=== PATIENT | male | born 1950 | race Caucasian/White ===

== ENCOUNTER 2018-02-25 08:13 | Emergency (ER) | payer OTHER, MEDICARE ==
[~2018-02-25] VITALS: Ht 175.3 cm; Wt 79.7 kg
[2018-02-25 08:22] VITALS: TEMP 36.3; Ht 175.3 cm; Wt 79.7 kg
[2018-02-25] MEDS ORDERED: SODIUM CHLORIDE 0.9% 1000ML 1,000 ML IV STA (08:27)
[2018-02-25] MEDS ORDERED: ONDANSETRON INJ 2 MG/ML 2 ML VIAL IV STA (08:27)
[2018-02-25] MEDS ORDERED: LOPERAMIDE HCL 2 MG CAP PO STA (08:39)
[2018-02-25 08:43] LABS: BASO % 0.2 %; BASO ABS # 0.01 K/uL (0-0.2); EOS % 0.5 %; EOS ABS # 0.03 K/uL (0-0.5); HEMATOCRIT 49.4 % (42-52); HEMOGLOBIN 18.2 g/dL (14.0-18.0); IG# 0.02 K/uL (0.00-0.02); LYMPH % 27.3 %; LYMPH ABS # 1.79 K/uL (1.2-3.4); MEAN CELL VOLUME 86.4 fL (80-100); MEAN CORPUSCULAR HEMOGLOBIN 31.8 pg (25-34); MEAN CORPUSCULAR HGB CONC 36.8 g/dl (32-36); MEAN PLATELET VOLUME 9.7 fL (7.4-10.4); MONO % 21.3 %; NEUT % 50.4 %; NEUT ABS # 3.31 K/uL (1.4-6.5); PLATELET COUNT 277 K/uL (130-400); RED CELL DISTRIBUTION WIDTH CV 13.2 % (11.5-14.5); RED CELL DISTRIBUTION WIDTH SD 41.9 fL (36.4-46.3); WHITE BLOOD COUNT 6.56 K/uL (4.8-10.8)
[2018-02-25 08:59] LABS: ALBUMIN 3.9 gm/dl (3.4-5.0); CALCIUM 8.9 mg/dl (8.5-10.1); CREATININE 2.18 mg/dl (0.60-1.40); POTASSIUM 3.3 mmol/L (3.5-5.1)
[2018-02-25 09:02] LABS: TOTAL PROTEIN 8.6 gm/dl (6.4-8.2)
[2018-02-25] MEDS ORDERED: LOSA1TAB PO (09:02)
[2018-02-25] MEDS ORDERED: PRVC40 PO (09:02)
[2018-02-25] MEDS ORDERED: TAMS0.4C38 PO (09:02)
[2018-02-25] MEDS ORDERED: PANT40TA PO (09:02)
--- NOTE | 2018-02-25 09:42 | DIAGNOSTIC IMAGING REPORT ---
CHEST ONE VIEW PORTABLE HISTORY: Generalized abdominal pain. COMPARISON: None. FINDINGS: The lungs are clear. Cardiac silhouette is normal in size. No pleural effusions. No pneumothorax. IMPRESSION: No acute process. Electronically signed by: Dre Vazquez M.D. 02/25/2018 9:40 AM Dictated Date/Time: 02/25/2018 9:40 AM
[2018-02-25] MEDS ORDERED: ONDA4TAB10 SL (09:44)
--- NOTE | 2018-02-25 09:46 | EMERGENCY ROOM VISIT NOTE ---
History Report prepared by Rodrigo: Zay Dewitt Under the Supervision of: Dr. Nomi Ignacio D.O. First contact with patient: 08:26 Chief Complaint: DIARRHEA Stated Complaint: DIARRHEA,NAUSEA History of Present Illness The patient is a 67 year old male who presents to the Emergency Room with complaints of a persistent illness that started 3 days ago. He states that he was fishing 3 days ago, and ate a ham sandwich, but an hour and a half after eating, he started having bad vomiting. The patient says that he vomited twice that day, and ever since then, he has had diarrhea every 10 minutes "all night all day". He notes that he has been having diarrhea 4 to 5 times every hour overnight. The patient says that he has only been able to put down water and Gatorade, and he feels dehydrated. He says that he has not vomited since the initial day of his symptoms, but he has had persistent nausea. He adds that he has been having some abdominal cramping. The patient denies any blood in his stool. He notes no recent antibiotic use. He denies drinking out of any streams. Source of History: patient Onset: 3 days ago Position: other (global) Symptom Intensity: 4 to 5 diarrhea episodes per hour Quality: other (illness) Associated Symptoms: + nausea, + vomiting, + abdominal pain, + diarrhea, No hematochezia Review of Systems See HPI for pertinent positives & negatives. A total of 10 systems reviewed and were otherwise negative. Past Medical & Surgical Medical Problems: (1) Acid reflux (2) HLD (hyperlipidemia) (3) HTN (hypertension) (4) Prostate enlargement Family History No pertinent family history Social History Smoking Status: Current Every Day Smoker Alcohol Use: occasionally Drug Use: none Occupation Status: retired Current/Historical Medications Scheduled Losartan Potassium (Cozaar), 25 MG PO DAILY Ondasetron Odt (Zofran Odt), 4 MG SL Q6H Pantoprazole (Protonix), 40 MG PO DAILY Pravastatin Sod (Pravastatin Sodium), 40 MG PO DAILY Tamsulosin Hcl (Flomax), 0.4 MG PO DAILY Allergies Coded Allergies: No Known Allergies (Unverified , 02/25/18) Physical Exam Vital Signs Date Time Temp Pulse Resp B/P (MAP) Pulse Ox O2 Delivery O2 Flow Rate FiO2 02/25/18 09:20 67 16 147/79 97 Room Air 02/25/18 08:22 36.3 89 20 108/73 99 Room Air Physical Exam CONSTITUTIONAL/VITAL SIGNS: Reviewed / noted above. GENERAL: Non-toxic in appearance. INTEGUMENTARY: Warm, dry, and [place]. HEAD: Normocephalic. EYES: without scleral icterus or trauma. ENT/OROPHARYNX: clear and moist. LYMPHADENOPATHY/NECK: Is supple without lymphadenopathy or meningismus. RESPIRATORY: Lungs clear and equal. CARDIOVASCULAR: Regular rate and rhythm. GI/ABDOMEN: Soft and nontender. No organomegaly or pulsatile mass. No rebound or guarding. Normal bowel sounds. EXTREMITIES: Warm and well perfused. BACK: No CVA tenderness. NEUROLOGICAL: Intact without focal deficits. PSYCHIATRIC: normal affect. MUSCULOSKELETAL: Normally developed with good muscle tone. Medical Decision & Procedures ER Provider Diagnostic Interpretation: X ray results and stated below per my interpretation and radiology interpretation. CHEST ONE VIEW PORTABLE HISTORY: Generalized abdominal pain. COMPARISON: None. FINDINGS: The lungs are clear. Cardiac silhouette is normal in size. No pleural effusions. No pneumothorax. IMPRESSION: No acute process. Electronically signed by: Dre Vazquez M.D. 02/25/2018 9:40 AM Dictated Date/Time: 02/25/2018 9:40 AM Laboratory Results 02/25/18 08:30 Red Blood Count 5.72, Mean Corpuscular Volume 86.4, Mean Corpuscular Hemoglobin 31.8, Mean Corpuscular Hemoglobin Concent 36.8, Mean Platelet Volume 9.7, Neutrophils (%) (Auto) 50.4, Lymphocytes (%) (Auto) 27.3, Monocytes (%) (Auto) 21.3, Eosinophils (%) (Auto) 0.5, Basophils (%) (Auto) 0.2, Neutrophils # (Auto ) 3.31, Lymphocytes # (Auto) 1.79, Monocytes # (Auto) 1.40, Eosinophils # (Auto ) 0.03, Basophils # (Auto) 0.01 02/25/18 08:30 Test 02/25/18 08:30 02/25/18 09:21 White Blood Count 6.56 K/uL (4.8-10.8) Red Blood Count 5.72 M/uL (4.7-6.1) Hemoglobin 18.2 g/dL (14.0-18.0) Hematocrit 49.4 % (42-52) Mean Corpuscular Volume 86.4 fL (80-100) Mean Corpuscular Hemoglobin 31.8 pg (25-34) Mean Corpuscular Hemoglobin Concent 36.8 g/dl (32-36) Platelet Count 277 K/uL (130-400) Mean Platelet Volume 9.7 fL (7.4-10.4) Neutrophils (%) (Auto) 50.4 % Lymphocytes (%) (Auto) 27.3 % Monocytes (%) (Auto) 21.3 % Eosinophils (%) (Auto) 0.5 % Basophils (%) (Auto) 0.2 % Neutrophils # (Auto) 3.31 K/uL (1.4-6.5) Lymphocytes # (Auto) 1.79 K/uL (1.2-3.4) Monocytes # (Auto) 1.40 K/uL (0.11-0.59) Eosinophils # (Auto) 0.03 K/uL (0-0.5) Basophils # (Auto) 0.01 K/uL (0-0.2) RDW Standard Deviation 41.9 fL (36.4-46.3) RDW Coefficient of Variation 13.2 % (11.5-14.5) Immature Granulocyte % (Auto) 0.3 % Immature Granulocyte # (Auto) 0.02 K/uL (0.00-0.02) Anion Gap 13.0 mmol/L (3-11) Est Creatinine Clear Calc Drug Dose 32.4 ml/min Estimated GFR () 34.8 Estimated GFR (Non- 30.0 BUN/Creatinine Ratio 21.6 (10-20) Calcium Level 8.9 mg/dl (8.5-10.1) Total Bilirubin 0.4 mg/dl (0.2-1) Direct Bilirubin 0.1 mg/dl (0-0.2) Aspartate Amino Transf (AST/SGOT) 44 U/L (15-37) Alanine Aminotransferase (ALT/SGPT) 56 U/L (12-78) Alkaline Phosphatase 57 U/L (45-117) Total Protein 8.6 gm/dl (6.4-8.2) Albumin 3.9 gm/dl (3.4-5.0) Lipase 380 U/L (73-393) Urine Color DK YELLOW Urine Appearance CLOUDY (CLEAR) Urine pH 5.0 (4.5-7.5) Urine Specific Rea 1.023 (1.000-1.030) Urine Protein 1+ (NEG) Urine Glucose (UA) NEG (NEG) Urine Ketones TRACE (NEG) Urine Occult Blood NEG (NEG) Urine Nitrite NEG (NEG) Urine Bilirubin NEG (NEG) Urine Urobilinogen NEG (NEG) Urine Leukocyte Esterase NEG (NEG) Urine WBC (Auto) 1-5 /hpf (0-5) Urine RBC (Auto) 5-10 /hpf (0-4) Urine Hyaline Casts (Auto) >30 /lpf (0-5) Urine Epithelial Cells (Auto) >30 /lpf (0-5) Urine Bacteria (Auto) NEG (NEG) Urine Pathogenic Casts 1-5 GRANULAR CASTS /lpf (0) Laboratory results as stated above per my review. Medications Administered Medications (Trade) Dose Ordered Sig/[place] Route Start Time Stop Time Status Last Admin Dose Admin Sodium Chloride 1,000 ml @ 500 mls/hr Q2H STAT IV 02/25/18 08:27 02/25/18 10:26 02/25/18 08:49 500 MLS/HR Ondansetron HCl (Zofran Inj) 4 mg NOW STAT IV 02/25/18 08:27 02/25/18 08:30 DC 02/25/18 08:47 4 MG Loperamide HCl (Imodium Cap) 2 mg NOW STAT PO 02/25/18 08:39 02/25/18 08:40 DC 02/25/18 08:47 2 MG ED Course 0827: Zofran Inj 4 mg IV, NSS 1000 ml @ 500 mls/hr IV. 0835: Previous medical records were reviewed. The patient was evaluated in room A10. A complete history and physical examination was performed. 0839: Imodium Cap 2 mg PO. 0946: On reevaluation, the patient is resting comfortably. I discussed the results and findings with the patient. He verbalized agreement of the treatment plan. He will be discharged home. Medical Decision Differential diagnosis: Etiologies such as gastroenteritis, food borne illness, infections, appendicitis , diverticulitis, inflammatory bowel disease, obstruction, GI bleed, biliary pathology, as well as others were entertained. This is a 67-year-old male who presents to the ED with a chief complaint of diarrhea. The patient reports that his symptoms started on , 3 days ago. He states that he was fishing and ate a sandwich and had a little beer. Around 2 hours later he developed vomiting. He states that he vomited twice and then shortly thereafter developed diarrhea. He states that he was going about every 10 minutes. It was watery and nonbloody. The patient states that he has not been able to eat since that time but does report that he is able to tolerate water and Gatorade. He reports some abdominal cramps. He states that his diarrhea is about once every 20-30 minutes now it has been subsiding somewhat. He did take some Pepto-Bismol. He has no other specific complaints. Denies drinking non-potable water, recent antibiotic use or travel. His physical exam did not reveal any abdominal tenderness or anything else unusual. Laboratory studies reveal a normal CBC. His chemistry panel was unremarkable with exception of a BUN of 47 and a creatinine of 2.18. Lipase is negative. Urine revealed trace ketones but otherwise was unremarkable. The patient was treated with normal saline IV, IV Zofran and oral Imodium. Medication Reconcilliation Current Medication List: was personally reviewed by me Blood Pressure Screening Patient's blood pressure: Normal blood pressure Impression Primary Impression: Nausea vomiting and diarrhea Additional Impressions: Dehydration Renal insufficiency Scribe Attestation The scribe's documentation has been prepared under my direction and personally reviewed by me in its entirety. I confirm that the note above accurately reflects all work, treatment, procedures, and medical decision making performed by me. Departure Information Dispostion Home / Self-Care Prescriptions Ondasetron Odt (ZOFRAN ODT) 4 Mg Tab 4 MG SL Q6H for Nausea, #20 TAB Prov: Nomi Ignacio D.O. 02/25/18 Referrals No Doctor, Assigned (PCP) Patient Instructions Diarrhea, ED Diet Vomiting Diarrhea, My [facility] Additional Instructions Zofran: Allow one tablet to dissolve under the tongue every 6 hours as needed for nausea or vomiting. Try Imodium for diarrhea. Continue hydration with oral electrolyte solution. Your kidney function today was abnormal. BUN = 47, Creatinine = 2.18 Follow- up with your doctor for recheck and repeat labs in 1-2 weeks. Follow-up with your doctor for further care and evaluation in 2-3 days if symptoms persist. Return to the emergency department for worsening or new symptoms or any concerns. You have been examined and treated today on an emergency basis only. This is not a substitute for, or an effort to provide, complete comprehensive medical care. It is impossible to recognize and treat all injuries or illnesses in a single emergency department visit. It is therefore important that you follow up closely with your doctor. Call as soon as possible for an appointment. Problem Qualifiers
[2018-02-25 10:17] VITALS: BP 108/69; PULSE 66; O2SAT 96
== END 2018-02-25 10:18 | disposition home or self-care (01) ==
LOC: C.EDB 08:15 → C.EDA 10:18
DX: R11.2 Nausea with vomiting, unspecified (principal); R19.7 Diarrhea, unspecified; E86.0 Dehydration; N28.9 Disorder of kidney and ureter, unspecified; I10 Essential (primary) hypertension; K21.9 Gastro-esophageal reflux disease without esophagitis; E78.5 Hyperlipidemia, unspecified; N40.0 Benign prostatic hyperplasia without lower urinary tract symptoms; F17.200 Nicotine dependence, unspecified, uncomplicated; Z79.899 Other long term (current) drug therapy

== ENCOUNTER 2018-03-06 08:58 | Emergency (ER) | payer OTHER, MEDICARE ==
[~2018-03-06] VITALS: Ht 177.8 cm; Wt 83.3 kg
[~2018-03-06 08:58] MED LIST: LOSA1TAB PO; ONDA4TAB10 SL; PANT40TA PO; PRVC40 PO; TAMS0.4C38 PO
[2018-03-06 09:06] VITALS: TEMP 36.7; Ht 177.8 cm; Wt 83.3 kg
[2018-03-06] MEDS ORDERED: NIFE20CA PO (10:00)
[2018-03-06 10:04] LABS: BASO % 0.5 %; BASO ABS # 0.03 K/uL (0-0.2); EOS % 4.1 %; EOS ABS # 0.24 K/uL (0-0.5); HEMATOCRIT 38.5 % (42-52); HEMOGLOBIN 13.9 g/dL (14.0-18.0); IG# 0.04 K/uL (0.00-0.02); LYMPH % 25.1 %; LYMPH ABS # 1.46 K/uL (1.2-3.4); MEAN CELL VOLUME 86.5 fL (80-100); MEAN CORPUSCULAR HEMOGLOBIN 31.2 pg (25-34); MEAN CORPUSCULAR HGB CONC 36.1 g/dl (32-36); MEAN PLATELET VOLUME 8.9 fL (7.4-10.4); MONO % 12.5 %; MONO ABS # 0.73 K/uL (0.11-0.59); NEUT % 57.1 %; NEUT ABS # 3.32 K/uL (1.4-6.5); PLATELET COUNT 351 K/uL (130-400); RED CELL DISTRIBUTION WIDTH CV 13.3 % (11.5-14.5); RED CELL DISTRIBUTION WIDTH SD 42.3 fL (36.4-46.3); WHITE BLOOD COUNT 5.82 K/uL (4.8-10.8)
[2018-03-06 10:13] LABS: PTT PATIENT 26.6 SECONDS (21.0-31.0)
[2018-03-06 10:22] LABS: CALCIUM 8.6 mg/dl (8.5-10.1); CREATININE 0.89 mg/dl (0.60-1.40); POTASSIUM 4.3 mmol/L (3.5-5.1)
--- NOTE | 2018-03-06 10:22 | DIAGNOSTIC IMAGING REPORT ---
L TIBIA/FIBULA 2 VIEWS ROUTINE CLINICAL HISTORY: Left lower leg pain. COMPARISON: None FINDINGS: No acute fracture or osseous lesion is identified within the left tibia or fibula. A small plantar calcaneal spur is noted. There is moderate vascular calcification. Talar dome is intact. IMPRESSION: No osseous abnormality of the left tibia or fibula. Electronically signed by: Ananth Hernandez M.D. 03/06/2018 10:21 AM Dictated Date/Time: 03/06/2018 10:20 AM
--- NOTE | 2018-03-06 10:41 | DIAGNOSTIC IMAGING REPORT ---
ULTRASOUND LEFT LOWER EXTREMITY VENOUS CLINICAL HISTORY: Left lower extremity paresthesias. COMPARISON STUDY: No priors. TECHNIQUE: Real-time, grayscale, and color Doppler sonography of the deep veins of the left lower extremity was performed from the inguinal crease to the calf. Compression and augmentation were utilized. FINDINGS: There is no sonographic evidence of deep venous thrombosis identified in the left lower extremity. The common femoral, superficial femoral, and popliteal veins are patent and normally compressible. The greater saphenous vein and the profunda femoris vein at the junction with the common femoral vein are clear. The visualized calf veins are patent. IMPRESSION: There is no sonographic evidence of deep venous thrombosis identified in the left lower extremity. Electronically signed by: Wilber Novoa M.D. 03/06/2018 10:39 AM Dictated Date/Time: 03/06/2018 10:39 AM
[2018-03-06 12:11] VITALS: BP 134/80; PULSE 64; O2SAT 94
--- NOTE | 2018-03-06 15:04 | EMERGENCY ROOM VISIT NOTE ---
ED Visit Note First contact with patient: 09:24 I have personally been involved with the patient's care along side the PA. I agree with the diagnosis and management decisions and have been personally involved in the case. Please see Dharmesh Abreu PA-C's notes for further details of the history, physical and visit.
--- NOTE | 2018-03-06 17:10 | EMERGENCY ROOM VISIT NOTE ---
ED Visit Note First contact with patient: 09:24 Chief Complaint: Having a hot sensation in my left leg. History of Present Illness: Mr. Khanna is a 67-year-old white male who ambulates into the ED complaining of a hot sensation over the lateral aspect of the left lower leg. Patient reports for the last 3 days he has been having intermittent, transient sensations of leg hotness over the lateral aspect of the left lower leg. He reports it has been happening every couple hours during the day. He has not identified any aggravating or alleviating factors related to the symptoms. He has not taken any medications for his symptoms prior to arrival at the hospital. He denies any associated symptoms including skin eruptions, skin color changes, recent trauma, fevers, chills, sweats, back pain, hip pain, knee pain, ankle pain, leg weakness/numbness/tingling, recent surgery/inactivity/ extended travel, palpitations, dependent edema, calf tenderness, cords, chest discomfort, shortness of breath. Review of Systems: As noted above in history of present illness. At least body systems were reviewed and found to be negative as noted above. Past Medical History: Gastric reflux, dyslipidemia, hypertension, BNP. Current Medications: Pravastatin, losartan, tamsulosin, pantoprazole, nifedipine. Allergies to Medications: Lisinopril. Social History: Patient is currently retired; he feels safe in his home environment; he admits to tobacco use. Physical Examination: Vital Signs: Date Time Temp Pulse Resp B/P (MAP) Pulse Ox O2 Delivery O2 Flow Rate FiO2 03/06/18 12:11 64 20 134/80 94 03/06/18 11:01 56 20 135/71 93 Room Air 03/06/18 09:06 36.7 63 16 139/80 98 Room Air GENERAL: 67-year-old male in no acute distress, nontoxic-appearing, afebrile and hemodynamically stable. NEUROLOGICAL: Awake, alert and oriented to person, place and time. Answering questions appropriately and following commands. Normal gait. Good hand eye coordination. No focal motor or sensory deficits. SKIN: Warm, dry and pink. No soft tissue eruptions or trauma noted. HEENT: Atraumatic and normocephalic. BACK: No tenderness over the bony lumbar spine and para musculature. THORAX: Lungs sounds are clear to auscultation and equal bilaterally with symmetrical chest wall. No wheezing, rales or rhonchi. ABDOMEN: Flat, soft and nontender. Positive bowel sounds in all quadrants. No guarding, rigidity or organomegaly. LEFT LOWER EXTREMITY: No gross bony deformity. No shortening or malrotation. No tenderness in the hip, thigh, knee, lower leg, ankle or foot. No calf tenderness or cords. Full range of motion of all movements of the hip, knee and ankle against resistance. Throughout the lower leg and foot the skin was warm and pink and capillary refill is brisk. He was able to distinguish light sensations to all dermatomes. No dependent edema. ED Course: Patient is assessed as noted above. Patient's medication list was reviewed. Laboratory Testing: Test 03/06/18 09:49 Range/Units White Blood Count 5.82 4.8-10.8 K/uL Red Blood Count 4.45 4.7-6.1 M/uL Hemoglobin 13.9 14.0-18.0 g/dL Hematocrit 38.5 42-52 % Mean Corpuscular Volume 86.5 80-100 fL Mean Corpuscular Hemoglobin 31.2 25-34 pg Mean Corpuscular Hemoglobin Concent 36.1 32-36 g/dl Platelet Count 351 130-400 K/uL Mean Platelet Volume 8.9 7.4-10.4 fL Neutrophils (%) (Auto) 57.1 % Lymphocytes (%) (Auto) 25.1 % Monocytes (%) (Auto) 12.5 % Eosinophils (%) (Auto) 4.1 % Basophils (%) (Auto) 0.5 % Neutrophils # (Auto) 3.32 1.4-6.5 K/uL Lymphocytes # (Auto) 1.46 1.2-3.4 K/uL Monocytes # (Auto) 0.73 0.11-0.59 K/uL Eosinophils # (Auto) 0.24 0-0.5 K/uL Basophils # (Auto) 0.03 0-0.2 K/uL RDW Standard Deviation 42.3 36.4-46.3 fL RDW Coefficient of Variation 13.3 11.5-14.5 % Immature Granulocyte % (Auto) 0.7 % Immature Granulocyte # (Auto) 0.04 0.00-0.02 K/uL Prothrombin Time 10.2 9.0-12.0 SECONDS Prothromb Time International Ratio 1.0 0.9-1.1 Activated Partial Thromboplast Time 26.6 21.0-31.0 SECONDS Partial Thromboplastin Ratio 1.0 Sodium Level 141 136-145 mmol/L Potassium Level 4.3 3.5-5.1 mmol/L Chloride Level 108 98-107 mmol/L Carbon Dioxide Level 29 21-32 mmol/L Anion Gap 4.0 3-11 mmol/L Blood Urea Nitrogen 15 7-18 mg/dl Creatinine 0.89 0.60-1.40 mg/dl Est Creatinine Clear Calc Drug Dose 82.0 ml/min Estimated GFR () 101.8 Estimated GFR (Non- 87.9 BUN/Creatinine Ratio 16.5 10-20 Random Glucose 96 70-99 mg/dl Calcium Level 8.6 8.5-10.1 mg/dl Left Lower Leg Venous Doppler Ultrasound: Was reviewed by myself and read the radiologist shows no sonographic evidence of deep vein thrombus. Left Lower Leg X-Rays: Were read by myself and the radiologist showing no acute fracture, osseous lesion in the lower leg. Moderate vascular calcification was noted. Chest X-Ray: Was read by myself and the radiologist showing no acute infiltrates , effusions or pneumothorax. Normal heart silhouette and bony anatomy. Patient was reassessed multiple times during his stay in the emergency department. Patient's case was reviewed with Dr. Conway; we agreed on diagnostic approach, treatment, disposition and plan. Patient was educated about today's findings and instructed on his treatment plan ; he verbalized understanding and agreement with this plan. Clinical Impression: Left lower leg discomfort. Decision-Making: Initially my differential diagnosis I considered cellulitis, abscess, deep vein thrombus, fracture of the fibula, osteoarthritis, osteomyelitis and other causes. Disposition: Patient discharged home in stable condition; prior to departure he was reassessed and subjectively reported that he was pain and symptom-free. Plan: Patient was encouraged to continue his current medications as prescribed. Patient was encouraged use ibuprofen or acetaminophen as needed for pain. Patient was encouraged to follow-up with primary care provider if no better in 3 -4 days. Patient was encouraged return the ED for if the pain became more constant, he developed redness/swelling, the development of fevers, left lower leg weakness/ numbness/tingling or any new/concerning symptoms.
== END 2018-03-06 12:12 | disposition home or self-care (01) ==
LOC: C.EDB 09:00 → C.EDA 12:12
DX: M79.605 Pain in left leg (principal); R20.8 Other disturbances of skin sensation; K21.9 Gastro-esophageal reflux disease without esophagitis; E78.5 Hyperlipidemia, unspecified; I10 Essential (primary) hypertension; Z79.899 Other long term (current) drug therapy; Z88.8 Allergy status to other drugs, medicaments and biological substances; Z72.0 Tobacco use